=== PATIENT | male | born 1985 ===

== ENCOUNTER 2023-12-08 03:23 | Emergency (ER) | payer OTHER ==
[2023-12-08] MEDS ORDERED: Acetaminophen/Oxycodone 5 MG/325 MG TABLET PO ONE (03:35)
[2023-12-08] MEDS ORDERED: TRAMADOL HCL50 MG PO (05:04)
[2023-12-08] MEDS ORDERED: MELOXICAM15 MG PO (05:04)
== END 2023-12-08 05:16 | disposition home or self-care (01) ==
LOC: ED 03:23
DX: S01.81XA Laceration without foreign body of other part of head, initial encounter (principal); V49.9XXA Car occupant (driver) (passenger) injured in unspecified traffic accident, initial encounter; Y93.89 Activity, other specified; Y92.410 Unspecified street and highway as the place of occurrence of the external cause; Y99.8 Other external cause status